=== PATIENT | female | born 2005 | race Caucasian/White ===

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

== ENCOUNTER 2025-01-12 09:58 | Outpatient (OUT) | payer MEDICAID, SELFPAY ==
--- NOTE | 2025-01-12 10:07 | XR_ITS ---
The [address] [address] Patient Name: KEI JOSHI MRN: [id number] date: 2005 Sex: F Assigned Patient Location: [facility] Current Patient Location: [facility] Accession/Order Number: [id number] Exam Date: 01/12/2025 10:15 Report Date: 01/12/2025 12:35 At the request of: KELSIE BRUNNER DPAlina Procedure: XR foot RT min 3V CLINICAL DATA: Left ankle instability and chronic pain. Previous surgeries. PATIENT dropped hammer on right foot 3 weeks ago LEFT ANKLE - 3 views COMPARISON: 09/24/2022 AP, lateral and oblique views were obtained. There is no evidence of fracture or dislocation. The talar dome is intact. There are no significant soft tissue abnormalities. XR/XR ankle LT min 3V IMPRESSION: NO ACUTE BONY INJURY. RIGHT FOOT - 3 views COMPARISON: 11/20/2022 Standing AP, lateral and oblique views were obtained. There is no evidence of fracture or dislocation. Dorsal soft tissue swelling is present. IMPRESSION: NO ACUTE BONY INJURY. Impression dictated by: Alma Rowley M.D. 01/12/2025 12:35 PM Dictation Location: [place] [address] Electronically authenticated by: [id number] Y Date: 01/12/2025 12:35
--- NOTE | 2025-01-12 10:09 | XR_ITS ---
The [address] [address] Patient Name: KEI JOSHI MRN: [id number] date: 2005 Sex: F Assigned Patient Location: [facility] Current Patient Location: [facility] Accession/Order Number: [id number] Exam Date: 01/12/2025 10:15 Report Date: 01/12/2025 12:35 At the request of: KELSIE BRUNNER DPAlina Procedure: XR foot RT min 3V CLINICAL DATA: Left ankle instability and chronic pain. Previous surgeries. PATIENT dropped hammer on right foot 3 weeks ago LEFT ANKLE - 3 views COMPARISON: 09/24/2022 AP, lateral and oblique views were obtained. There is no evidence of fracture or dislocation. The talar dome is intact. There are no significant soft tissue abnormalities. XR/XR foot RT min 3V IMPRESSION: NO ACUTE BONY INJURY. RIGHT FOOT - 3 views COMPARISON: 11/20/2022 Standing AP, lateral and oblique views were obtained. There is no evidence of fracture or dislocation. Dorsal soft tissue swelling is present. IMPRESSION: NO ACUTE BONY INJURY. Impression dictated by: Alma Rowley M.D. 01/12/2025 12:35 PM Dictation Location: [place] [address] Electronically authenticated by: [id number] Y Date: 01/12/2025 12:35
== END 2025-01-12 09:59 | disposition home or self-care (01) ==
PROVIDERS: PCP Nurse Practitioner; Visit Provider Podiatrist Foot & Ankle Surgery
DX: M25.372 Other instability, left ankle (principal); S92.324A Nondisplaced fracture of second metatarsal bone, right foot, initial encounter for closed fracture
CPT/HCPCS: 73610; 73630

== ENCOUNTER 2025-02-07 08:56 | Outpatient (OUT) | payer MEDICAID, SELFPAY ==
--- NOTE | 2025-02-07 09:08 | MR_ITS ---
[address] [address] Patient Name: KEI JOSHI MRN: [id number] date: 2005 Sex: F Assigned Patient Location: MRI Current Patient Location: MRI Accession/Order Number: [id number] Exam Date: 02/07/2025 09:15 Report Date: 02/07/2025 16:11 At the request of: KELSIE BRUNNER DPM Procedure: MR ankle LT wo con MR ankle LT wo con 02/07/2025 9:53 AM SIGNS AND SYMPTOMS: Ankle Instability, chronic left ankle pain PROTOCOL: Multiplanar multisequence MR images of the right ankle without contrast COMPARISON: 01/12/2025 and 10/14/2022 FINDINGS: Alignment: Normal. Fluid: Tibiotalar: No joint effusion. Subtalar: No joint effusion. Medial: Medial malleolus: Normal. Tendons: Posterior tibial tendon: Intact. Flexor digitorum longus: Intact. Flexor hallucis longus: Intact. Ligaments: Deltoid ligament complex - superficial: Intact. Deltoid ligament complex - deep: Intact. Spring (plantar calcaneo-navicular) ligament: Intact. Lateral: Lateral malleolus: Postoperative changes are noted in the lateral malleolus consistent with previous ligamentous repair.. Retromalleolar groove: Intact. Tendons: Peroneus longus: Intact. Peroneus brevis: There is a partial thickness tear of the peroneus brevis. Peroneal retinaculum: Intact. Ligaments: Anterior inferior tibiofibular (syndesmosis): Intact. Posterior inferior tibiofibular (syndesmosis): Intact. Anterior talofibular ligament: Postoperative changes are noted. The ligament appears to be intact.. Calcaneofibular ligament: Postoperative changes are noted. The ligament appears to be intact.. Posterior talofibular ligament: Intact. Posterior: Posterior talus: Normal. Intermalleolar ligament: Intact. Achilles tendon: Intact. Plantar fascia: Intact. Anterior: Tendons: Anterior tibial tendon: Intact. Extensor hallucis longus: Intact. Extensor digitorum longus: Intact. Tibiotalar joint: Preserved. Subtalar joint: Preserved. Bones (other than subarticular marrow): Normal. Muscles: Normal Tarsal tunnel: Normal. Sinus tarsi: Normal. MR/MR ankle LT wo con IMPRESSION: Postoperative changes are noted along the distal fibula at the origins of the anterior talofibular ligament and calcaneofibular ligament. The ligaments appears to be intact. This is new when compared to the prior MRI. There is a partial thickness tear of the peroneus brevis. This is new compared to the prior MRI. Impression dictated by: Andrea Castorena M.D. 02/07/2025 4:11 PM Dictation Location: [place] [address] Electronically authenticated by: [id number] Y Date: 02/07/2025 16:11
== END 2025-02-07 08:57 | disposition home or self-care (01) ==
LOC: MRI 08:56
PROVIDERS: PCP Nurse Practitioner; Visit Provider Podiatrist Foot & Ankle Surgery
DX: M25.372 Other instability, left ankle (principal); S86.312A Strain of muscle(s) and tendon(s) of peroneal muscle group at lower leg level, left leg, initial encounter
CPT/HCPCS: 73721

== ENCOUNTER 2025-02-24 11:01 | Outpatient (OUT) | payer MEDICAID, SELFPAY ==
--- NOTE | 2025-02-24 11:24 | XR_ITS ---
[address] [address] Patient Name: KEI JOSHI MRN: [id number] date: 2005 Sex: F Assigned Patient Location: [facility] Current Patient Location: [facility] Accession/Order Number: [id number] Exam Date: 02/24/2025 11:41 Report Date: 02/24/2025 14:17 At the request of: KELSIE BRUNNER DPM Procedure: XR chest 2V Chest 2 views CLINICAL HISTORY: Preop exam COMPARISON: Chest 10/28/2022 FINDINGS: Heart appears normal in size. Lungs are clear. No free air. XR/XR chest 2V IMPRESSION: NO ACUTE CARDIOPULMONARY ABNORMALITY. Impression dictated by: Aneesh Garza Jr.OHernandez 02/24/2025 2:17 PM Dictation Location: [place] [address] Electronically authenticated by: [id number] Y Date: 02/24/2025 14:17
[2025-02-24 11:39] LABS: Hematocrit 38.7 % (36.0-48.0); Hemoglobin 13.0 g/dL (12.0-16.0); Immature Granulocytes Abs Auto 0.01 10^3/uL (0.00-0.03); Immature Granulocytes Pct Auto 0.2 % (0.0-0.5); Lymphocytes Absolute Auto 1.8 10^3/uL (1.2-3.8); Mean Corpuscular HGB Conc 33.6 g/dL (29.9-35.2); Mean Corpuscular Hemoglobin 28.8 pg (26.7-34.0); Mean Corpuscular Volume 85.8 fL (81.0-99.0); Platelet Count 256 10^3/uL (150-450); Red Blood Count 4.51 10^6/uL (4.20-5.40); White Blood Count 5.9 10^3/uL (4.0-11.0)
--- NOTE | 2025-02-24 11:41 | P.GSHP_ITS ---
History of Present Illness History of Present Illness Chief complaint: impingement syndrome of left ankle Narrative: Patient presents for presurgical testing. Please see HPI from Dr. Yan dated February 17, 2025. Review of Systems ROS Narrative REVIEW OF SYSTEMS: Negative except as stated in HPI, ten or more systems reviewed. Constitutional: No fever, chills, weakness ENT: No sore throat or epistaxis Cardiovascular: No edema, chest pain, palpitations, or activity intolerance Respiratory: No shortness of breath, cough, or wheezing Gastrointestinal: No abdominal pain, constipation, diarrhea, or vomiting Genitourinary: No dysuria or hematuria Neurological: No numbness, tingling, weakness, or headache Psychiatric: No mood changes [facility] Medical History (Updated 02/24/25 @ 11:43 by Stephanie Ovalle NP) Left ankle instability ?M25.372 - Other instability, left ankle (ICD-10) Tear of peroneal tendon of left foot ?S86.312A - Strain of muscle(s) and tendon(s) of peroneal muscle group at lower leg level, left leg, initial encounter (ICD-10) Left ankle pain ?M25.572 - Pain in left ankle and joints of left foot (ICD-10) Impingement syndrome of left ankle ?M25.872 - Other specified joint disorders, left ankle and foot (ICD-10) GERD (gastroesophageal reflux disease) ?K21.9 - Gastro-esophageal reflux disease without esophagitis (ICD-10) Anemia ?D64.9 - Anemia, unspecified (ICD-10) Depression ?F32.A - Depression, unspecified (ICD-10) Anxiety ?F41.9 - Anxiety disorder, unspecified (ICD-10) COVID-19 ?U07.1 - COVID-19 (ICD-10) Migraine ?G43.909 - Migraine, unspecified, not intractable, without status migrainosus (ICD-10) Heartburn ?R12 - Heartburn (ICD-10) Hypotension ?I95.9 - Hypotension, unspecified (ICD-10) Hypotension ?I95.9 - Hypotension, unspecified (ICD-10) Ankle pain ?M25.579 - Pain in unspecified ankle and joints of unspecified foot (ICD-10) Sprain of ligament of ankle ?S93.409A - Sprain of unspecified ligament of unspecified ankle, initial encounter (ICD-10) Surgical History (Updated 02/24/25 @ 11:18 by Stephanie Ovalle NP) History of ankle surgery (11/13/22) ?Z98.890 - Other specified postprocedural states (ICD-10) History of tonsillectomy ?Z90.89 - Acquired absence of other organs (ICD-10) History of foot surgery ?Z98.890 - Other specified postprocedural states (ICD-10) Family History (Updated 10/28/22 @ 13:56 by Stephanie Ovalle NP) Other Family history of COPD (chronic obstructive pulmonary disease) Family history of cancer Family history of cervical cancer Family history of colon cancer Family history of diabetes mellitus Family history of gastric cancer Family history of prostate cancer Family history of skin cancer Heart disease Pancreatic cancer Social History (Updated 10/28/22 @ 13:39 by Stephanie Ovalle NP) Within the past year, how often did you have a drink containing alcohol: never Score interpretation: A score less than 3 is consistent with normal alcohol consumption. Do you use any of these nicotine containing products: e-cigarettes Non-prescribed substance use: cannabis (any form) Previous occupational history: fast food Highest level of school completed/degree received: high school graduate Meds Home Medications and Allergies Allergies Allergy/AdvReac Type Severity Reaction Status Date / Time red dye Allergy Vomiting Verified 02/24/25 11:20 Exam Narrative Exam Narrative: Constitutional: Awake, alert, poorly groomed, comfortable, well-appearing, nontoxic, interactive, vital signs as charted Head: Normocephalic, atraumatic Neck: Supple, normal appearance, normal range of motion, no meningeal signs, no lymphadenopathy Respiratory: No respiratory distress, breath sounds clear Cardiovascular: Regular rate and rhythm, strong and regular heart tones Skin: No rashes or induration, no lesions, only visible skin inspected Neuro: No neurological deficits, normal sensation Psychiatric: Oriented ?3, normal affect Assessment and Plan Assessment and Plan (1) Impingement syndrome of left ankle: (2) Left ankle pain: (3) Tear of peroneal tendon of left foot: (4) Left ankle instability: Plan Left ankle arthroscopy with possible lateral ankle stabilization and peroneal tendon repair scheduled with Dr. Yan March 07, 2025.
== END 2025-02-24 11:02 | disposition home or self-care (01) ==
PROVIDERS: PCP Nurse Practitioner; Visit Provider Podiatrist Foot & Ankle Surgery
DX: Z01.810 Encounter for preprocedural cardiovascular examination (principal); Z01.812 Encounter for preprocedural laboratory examination; Z01.818 Encounter for other preprocedural examination; M25.872 Other specified joint disorders, left ankle and foot
CPT/HCPCS: 71046; 85025; G0463